=== PATIENT | female | born 1960 | race Caucasian/White ===

== ENCOUNTER 2020-10-29 20:36 | Emergency (ER) | payer OTHER ==
[~2020-10-29 20:36] MED LIST: MIRALAX17 GM PO; NEURONTIN300 MG PO; OXYCODONE HCL15 MG PO; PEPCID AC20 MG PO; PHENERGAN25 M1 PO; PROTONIX 40MG T40 MG PO
[2020-10-29] MEDS ORDERED: HYDROCODON-ACE1 EAC2 PO (22:11)
[2020-10-29] MEDS ORDERED: ULTRA-LIGHT RO1 EACH XX (22:14)
[2020-11-05] MEDS ORDERED: NEURONTIN300 MG PO (08:42)
[2020-11-05] MEDS ORDERED: OXYCODONE HCL15 MG PO (08:43)
[2020-11-05] MEDS ORDERED: CYMBALTA 30MG C30 MG PO (08:46)
[2020-11-05] MEDS ORDERED: ATARAX25 MG PO (08:46)
[2020-11-05] MEDS ORDERED: ABILIFY5 MG PO (08:47)
[2020-11-05] MEDS ORDERED: BUSPAR5 MG PO (08:49)
[2020-11-05] MEDS ORDERED: TRAZODONE 50MG50 MG PO (08:49)
[2020-11-05] MEDS ORDERED: ONDANSETRON HCL4 MG PO (08:50)
[2020-11-09] MEDS ORDERED: PERCOCET 5-3251 EACH PO ×2 (07:05→11:54)
== END 2020-10-29 22:49 | disposition home or self-care (01) ==
LOC: FER 20:36
DX: S82.001A Unspecified fracture of right patella, initial encounter for closed fracture (principal); F17.210 Nicotine dependence, cigarettes, uncomplicated; Z88.1 Allergy status to other antibiotic agents; Z85.048 Personal history of other malignant neoplasm of rectum, rectosigmoid junction, and anus; W01.0XXA Fall on same level from slipping, tripping and stumbling without subsequent striking against object, initial encounter
CPT/HCPCS: 73564; 96372; J1885

== ENCOUNTER → 2020-11-09 | Day surgery (SDC) | payer OTHER ==
[~2020-11-09] VITALS: Ht 157.5 cm; Wt 68.0 kg
[~2020-11-09] MED LIST changes: +ABILIFY5 MG PO; +ATARAX25 MG PO; +BUSPAR5 MG PO; +CYMBALTA 30MG C30 MG PO; +HYDROCODON-ACE1 EAC2 PO; +ONDANSETRON HCL4 MG PO; +PERCOCET 5-3251 EACH PO; +TRAZODONE 50MG50 MG PO; +ULTRA-LIGHT RO1 EACH XX
[2020-11-09 10:24] LABS: HCT 43.2 % (37.0-47.0); HGB 13.9 g/dl (12.5-16.0); MCH 29.1 pg (25.0-31.0); MCHC 32.2 g/dL (32.0-36.0); MCV 90.4 fL (78.0-100.0); MPV 9.1 fL (6.0-9.5); RBC 4.78 M/uL (4.20-5.40); RDW 14.3 % (11.5-14.0); WBC 5.2 K/uL (4.0-10.5)
[2020-11-09 10:45] LABS: ALBUMIN 3.5 g/dL (3.4-5.0); BILIRUBIN - TOTAL 0.4 mg/dL (0.2-1.0); BUN/CREAT RATIO (CALC) 14.4 RATIO; CREATININE 0.9 mg/dL (0.51-0.95); GLOBULIN (CALCULATION) 3.1 g/dL; POTASSIUM 3.9 mmol/L (3.5-5.1); TOTAL PROTEIN 6.6 g/dL (6.4-8.2)
== END | disposition home or self-care (01) ==
LOC: FAS 09:33
PROVIDERS: Orthopaedic Surgery
DX: S82.031A Displaced transverse fracture of right patella, initial encounter for closed fracture (principal); Z79.891 Long term (current) use of opiate analgesic; Z88.1 Allergy status to other antibiotic agents; W13.3XXA Fall through floor, initial encounter
CPT/HCPCS: 36415; 73560; 76000; 80053; C1713; C1769; J0690; J1100; J1170; J1885; J2250; J2405; J2704; J2795; J3010; J7120